=== PATIENT | male | born 1965 | race Caucasian/White ===

== ENCOUNTER 2016-10-23 18:32 | Emergency (ER) | payer OTHER ==
[~2016-10-23] VITALS: Ht 167.6 cm; Wt 106.0 kg
[2016-10-23] MEDS ORDERED: TraMADol HCL 50 MG TABLET PO ONE (19:45)
[2016-10-23 20:21] LABS: ANION GAP 10 mmol/L (8-16); CALCIUM, TOTAL 9.1 mg/dL (8.8-10.5); CARBON DIOXIDE 25 mmol/L (22-29); CHLORIDE 110 mmol/L (98-107); CREATININE 1.14 mg/dL (0.60-1.30); GLOMERULAR FILTR. RATE CALC > 60 mL/min (>60); SODIUM SERUM 145 mmol/L (136-145); UREA NITROGEN, BLOOD 17 mg/dL (7-18)
[2016-10-23 20:44] LABS: CREATINE KINASE MB 1.7 ng/mL (0-5); CREATINE KINASE, TOTAL 129 U/L (39-308)
[2016-10-23 21:10] VITALS: BP 138/86
== END 2016-10-23 21:13 | disposition home or self-care (01) ==
LOC: EMS 18:33
DX: S70.11XA Contusion of right thigh, initial encounter (principal); M79.652 Pain in left thigh; J45.909 Unspecified asthma, uncomplicated; W22.8XXA Striking against or struck by other objects, initial encounter; Y93.89 Activity, other specified; Y92.89 Other specified places as the place of occurrence of the external cause; Y99.8 Other external cause status
CPT/HCPCS: 99284